=== PATIENT | female | born 2000 | race Caucasian/White ===

== ENCOUNTER 2022-01-02 07:43 | Emergency (ER) | payer MEDICAID ==
[~2022-01-02] VITALS: Ht 171.4 cm; Wt 75.5 kg
[2022-01-02 07:48] VITALS: BP 118/73
--- NOTE | 2022-01-02 07:54 | NUR ---
Patient being evaluated by DR WHITE at TRIAGE ROOM.
--- NOTE | 2022-01-02 08:01 | NUR ---
PT WALKED IN C/O EPISODIC ABDOMINAL PAIN TO THE EPIGASTRIC REGION NOW RADIATING TO RLQ. DENIES NVD. DENIES FEVER OR CHILLS. AAOX4, AMBULATORY, VITALS STABLE.
[2022-01-02 08:05] VITALS: BP 122/76
--- NOTE | 2022-01-02 08:22 | NUR ---
US AT BEDSIDE
[2022-01-02 08:37] LABS: BASOPHILS # (AUTO) 0.1 K/uL (0.00-0.22); BASOPHILS % (AUTO) 0.6 % (0.0-2.0); EOSINOPHILS # (AUTO) 0.4 K/uL (0-0.4); MEAN CORPUSCULAR HEMOGLOBIN 30 pg (27-31); MEAN CORPUSCULAR HGB CONC 33 g/dL (33-37); NEUTROPHILS # (AUTO) 15.6 K/uL (1.8-7.7); PLATELET COUNT (AUTO) 291 K/uL (140-450); RED BLOOD CELL COUNT(AUTO) 4.72 MIL/uL (4.20-5.40)
[2022-01-02 08:44] LABS: EOSINOPHILS % (AUTO) 2.1 % (0.0-4.0); LYMPHOCYTES # (AUTO) 2.9 K/uL (2.5-16.5); LYMPHOCYTES % (AUTO) 13.8 % (20.5-51.1); MONOCYTES # (AUTO) 1.9 K/uL (0.8-1.0); MONOCYTES % (AUTO) 9.2 % (1.7-9.3); NEUTROPHILS % (AUTO) 74.3 % (42.2-75.2); RED CELL DISTRIBUTION WIDTH 13.9 % (11.6-13.7)
[2022-01-02 08:57] LABS: ALBUMIN 3.4 g/dL (3.4-5.0); ANION GAP 13.8 (8-16); CARBON DIOXIDE 26.7 mmol/L (21-32); CREATININE 0.9 mg/dL (0.6-1.3); POTASSIUM 4.5 mmol/L (3.5-5.1); TOTAL BILIRUBIN 0.5 mg/dL (0.0-1.0)
[2022-01-02] MEDS ORDERED: NAPR-1704 PO (10:44)
== END 2022-01-02 10:50 | disposition home or self-care (01) ==
LOC: MED 07:43
DX: D72.829 Elevated white blood cell count, unspecified (principal); R10.31 Right lower quadrant pain; Z79.1 Long term (current) use of non-steroidal anti-inflammatories (NSAID)
CPT/HCPCS: 36415; 76705; 76830; 80053; 81002; 81025; 83690; 85025; 93976; 99284; Q0092